=== PATIENT | male | born 1945 ===

== ENCOUNTER 2018-03-27 07:45 | Emergency (ER) | payer OTHER ==
[~2018-03-27] VITALS: Ht 165.1 cm; Wt 79.8 kg
[2018-03-27] MEDS ORDERED: TIROSINT88 MCG (08:02)
[2018-03-27] MEDS ORDERED: NORVASC5 MG (08:02)
[2018-03-27] MEDS ORDERED: RANITIDINE HCL300 MG (08:02)
[2018-03-27] MEDS ORDERED: ATORVASTATIN CA40 MG (08:03)
[2018-03-27] MEDS ORDERED: MEDROLPACK PO (12:31)
[2018-03-27] MEDS ORDERED: ZITHROMAX500 MG PO (12:31)
== END 2018-03-27 13:02 | disposition home or self-care (01) ==
LOC: ER 07:45
DX: J44.9 Chronic obstructive pulmonary disease, unspecified (principal); R06.02 Shortness of breath

== ENCOUNTER 2018-09-11 12:42 | Inpatient (IN) | payer OTHER ==
[~2018-09-11] VITALS: Ht 165.1 cm; Wt 79.8 kg
[~2018-09-11 12:42] MED LIST: ATORVASTATIN CA40 MG; MEDROLPACK PO; NORVASC5 MG; RANITIDINE HCL300 MG; TIROSINT88 MCG; ZITHROMAX500 MG PO
[2018-09-14] MEDS ORDERED: LEVAQUIN750 MG PO (16:28)
== END 2018-09-14 16:12 | disposition home or self-care (01) | DRG 194 ==
LOC: ER 12:42 → MEDJ 18:55
PROVIDERS: ADMIT Internal Medicine
PROC: 8E0ZXY6 Isolation (ICD-10-PCS; principal; 2018-09-11)
PROC: 4A033R1 Measurement of Arterial Saturation, Peripheral, Percutaneous Approach (ICD-10-PCS; 2018-09-11)
PROC: 3E0F7GC Introduction of Other Therapeutic Substance into Respiratory Tract, Via Natural or Artificial Opening (ICD-10-PCS; 2018-09-12)
DX: J15.7 Pneumonia due to Mycoplasma pneumoniae (principal); J44.1 Chronic obstructive pulmonary disease with (acute) exacerbation; B37.89 Other sites of candidiasis; J84.112 Idiopathic pulmonary fibrosis; E03.8 Other specified hypothyroidism